=== PATIENT | male | born 1980 | race Two or more races ===

== ENCOUNTER 2016-11-08 08:32 | Emergency (ER) | payer BC ==
[~2016-11-08] VITALS: Ht 177.8 cm; Wt 111.1 kg
[2016-11-08 09:12] VITALS: BP 117/90
[2016-11-08] MEDS ORDERED: methylPREDNISolone SOD SUCC 125 MG/2 ML VL IM ONE (09:30)
[2016-11-08] MEDS ORDERED: IPRATROPIUM BROM 0.5 MG/2.5ML INH SOL NEB ONE (09:30)
[2016-11-08] MEDS ORDERED: ALBUTEROL SULF 2.5 MG/0.5ML(0.5%) NEB SOLN NEB ONE (09:30)
== END 2016-11-08 10:17 | disposition home or self-care (01) ==
LOC: ER 08:32
DX: S46.912A Strain of unspecified muscle, fascia and tendon at shoulder and upper arm level, left arm, initial encounter (principal); J45.909 Unspecified asthma, uncomplicated; X58.XXXA Exposure to other specified factors, initial encounter; Y93.89 Activity, other specified; Y92.89 Other specified places as the place of occurrence of the external cause; Y99.8 Other external cause status
CPT/HCPCS: 71020; 73030; 94640; 96372; 99284; J2930

== ENCOUNTER 2023-10-28 11:48 | Emergency (ER) | payer BC ==
[~2023-10-28] VITALS: Ht 177.8 cm; Wt 109.0 kg
[2023-10-28 12:37] VITALS: RESP 18; TEMP 98.3; O2SAT 92
[2023-10-28 14:06] LABS: Basophils # (auto) 0.1 10 ^3/uL (0-0.2); Basophils % (auto) 0.7 % (0.0-2.0); Eosinophils # (auto) 0.1 10 ^3/uL (0-0.8); Eosinophils % (auto) 0.9 % (0.0-7.0); Hematocrit 48.6 % (41.0-53.0); Hemoglobin 17.1 g/dL (13.5-17.5); Lymphocytes # (auto) 2.5 10 ^3/uL (0.4-5.4); Lymphocytes % (auto) 23.6 % (10.0-50.0); Mean Corpuscular Hemoglobin 32.5 pg (28.0-32.0); Mean Corpuscular Hgb Conc. 35.2 g/dL (32.0-36.0); Mean Corpuscular Volume 92.3 fL (80.0-100.0); Monocytes % (auto) 9.6 % (0.0-12.0); Neutrophils # (auto) 6.9 10 ^3/uL (1.6-8.6); Neutrophils % (auto) 65.2 % (37.0-80.0); Nucleated Red Blood Cells % 0.2 %; Platelet Count (auto) 237 10^3/uL (140-450); Red Blood Cells 5.27 10^6/uL (4.5-5.90); Red Cell Distribution Width 13.3 % (11.8-14.3); White Blood Cell 10.6 10^3/uL (4.4-10.8)
[2023-10-28 14:10] LABS: Anion Gap 9 (5-15); Carbon Dioxide 22 mmol/L (20-30); Chloride 110 mmol/L (98-107); Potassium 3.9 mmol/L (3.5-5.1); Sodium 141 mmol/L (136-145)
[2023-10-28 14:11] LABS: Calcium 10.1 mg/dL (8.7-10.4)
[2023-10-28 14:16] LABS: BUN/Creatinine Ratio 26.6 (10.0-20.0); Blood Urea Nitrogen 29 mg/dL (9-23); Glucose 93 mg/dL (74-106)
[2023-10-28 14:23] LABS: INR 0.97 (0.9-1.15); Partial Thromboplastin Time 27.3 SEC (24.5-34.5); Prothrombin Time 10.3 sec (9.3-11.8)
[2023-10-28] MEDS: IPRATROPIUM BROM 0.5 MG/2.5ML INH SOL NEB ONE (14:32)
[2023-10-28] MEDS: ALBUTEROL SULF 2.5 MG/0.5ML(0.5%) NEB SOLN NEB ONE (14:32)
[2023-10-28 15:37] VITALS: BP 134/91; PULSE 87; RESP 18; O2SAT 93
[2023-10-28] MEDS ORDERED: METH4PAK PO (15:41)
== END 2023-10-28 15:43 | disposition home or self-care (01) ==
LOC: ER 11:48
DX: J45.20 Mild intermittent asthma, uncomplicated (principal); Z79.899 Other long term (current) drug therapy
CPT/HCPCS: 36415; 71046; 80048; 83735; 84484; 85025; 85379; 85610; 85730; 94640

== ENCOUNTER 2023-11-04 13:24 | Emergency (ER) | payer BC ==
[~2023-11-04] VITALS: Ht 167.6 cm; Wt 112.3 kg
[~2023-11-04 13:24] MED LIST: METH4PAK PO
[2023-11-04] MEDS ORDERED: ALBUTEROL SULF 2.5 MG/0.5ML(0.5%) NEB SOLN NEB ONE (14:15)
[2023-11-04] MEDS ORDERED: methylPREDNISolone SOD SUCC 125 MG/2 ML VL IM ONE (14:15)
[2023-11-04] MEDS ORDERED: IPRATROPIUM BROM 0.5 MG/2.5ML INH SOL NEB ONE (14:15)
[2023-11-04] MEDS: ALBUTEROL SULF 2.5 MG/0.5ML(0.5%) NEB SOLN ONE (14:36)
[2023-11-04] MEDS: IPRATROPIUM BROM 0.5 MG/2.5ML INH SOL ONE (14:36)
[2023-11-04] MEDS ORDERED: ALBUAER3 IN (15:14)
[2023-11-04] MEDS ORDERED: AZIT500T PO (15:14)
[2023-11-04] MEDS ORDERED: METH4PAK PO (15:14)
[2023-11-04 15:27] LABS: Basophils # (auto) 0.1 10 ^3/uL (0-0.2); Basophils % (auto) 0.9 % (0.0-2.0); Eosinophils # (auto) 0.2 10 ^3/uL (0-0.8); Eosinophils % (auto) 1.4 % (0.0-7.0); Hematocrit 48.4 % (41.0-53.0); Hemoglobin 17.1 g/dL (13.5-17.5); Lymphocytes # (auto) 4.1 10 ^3/uL (0.4-5.4); Lymphocytes % (auto) 35.5 % (10.0-50.0); Mean Corpuscular Hgb Conc. 35.3 g/dL (32.0-36.0); Mean Corpuscular Volume 90.7 fL (80.0-100.0); Monocytes % (auto) 8.8 % (0.0-12.0); Neutrophils # (auto) 6.1 10 ^3/uL (1.6-8.6); Neutrophils % (auto) 53.4 % (37.0-80.0); Nucleated Red Blood Cells % 0.1 %; Platelet Count (auto) 246 10^3/uL (140-450); Red Blood Cells 5.34 10^6/uL (4.5-5.90); Red Cell Distribution Width 13.3 % (11.8-14.3); White Blood Cell 11.5 10^3/uL (4.4-10.8)
[2023-11-04] MEDS ORDERED: IPRA0.00 IN (15:31)
[2023-11-04 15:47] LABS: Chloride 107 mmol/L (98-107); Potassium 3.9 mmol/L (3.5-5.1); Sodium 141 mmol/L (136-145)
[2023-11-04 15:48] LABS: Anion Gap 10 (5-15); Carbon Dioxide 24 mmol/L (20-30)
[2023-11-04 15:49] LABS: Calcium 10.4 mg/dL (8.7-10.4)
[2023-11-04 15:53] LABS: BUN/Creatinine Ratio 22.3 (10.0-20.0); Blood Urea Nitrogen 27 mg/dL (9-23); Glucose 89 mg/dL (74-106)
[2023-11-04] MEDS: IPRATROPIUM BROM 0.5 MG/2.5ML INH SOL NEB ONE (16:00)
[2023-11-04] MEDS: ALBUTEROL SULF 2.5 MG/0.5ML(0.5%) NEB SOLN NEB ONE (16:00)
[2023-11-04 16:11] VITALS: BP 145/98; TEMP 98.3
[2023-11-04 16:12] VITALS: PULSE 69; RESP 20; O2SAT 96
[2023-11-04] MEDS: methylPREDNISolone SOD SUCC 125 MG/2 ML VL IV ONE (16:22)
[2023-11-04] MEDS: MAGNESIUM SULFATE 1GM/100ML 100 ML IV ONE (16:22)
== END 2023-11-04 16:55 | disposition home or self-care (01) ==
LOC: ER 13:24
DX: J45.901 Unspecified asthma with (acute) exacerbation (principal)
CPT/HCPCS: 36415; 71045; 80048; 84484; 85025; 94640; 96365; 96375; 99284; J2919; J3475

== ENCOUNTER 2023-11-08 12:58 | Observation (INO) | payer BC ==
[~2023-11-08] VITALS: Ht 177.8 cm; Wt 180.0 kg
[~2023-11-08 12:58] MED LIST changes: +ALBUAER3 IN; +AZIT500T PO; +IPRA0.00 IN
[2023-11-08] MEDS: MAGNESIUM SULFATE 1GM/100ML 100 ML IV ONE (13:15)
[2023-11-08] MEDS: methylPREDNISolone SOD SUCC 125 MG/2 ML VL IV ONE (13:15)
[2023-11-08] MEDS ORDERED: PANT40TA2 PO (13:18)
[2023-11-08] MEDS ORDERED: PRED20TA2 PO ×2 (13:18→17:08)
[2023-11-08 14:04] LABS: Basophils # (auto) 0 10 ^3/uL (0-0.2); Basophils % (auto) 0.3 % (0.0-2.0); Eosinophils # (auto) 0 10 ^3/uL (0-0.8); Eosinophils % (auto) 0.3 % (0.0-7.0); Hematocrit 46.2 % (41.0-53.0); Hemoglobin 16.3 g/dL (13.5-17.5); Lymphocytes % (auto) 11.8 % (10.0-50.0); Mean Corpuscular Hgb Conc. 35.3 g/dL (32.0-36.0); Mean Corpuscular Volume 90.8 fL (80.0-100.0); Monocytes # (auto) 0.6 10 ^3/uL (0-1.3); Monocytes % (auto) 6.7 % (0.0-12.0); Neutrophils # (auto) 7.2 10 ^3/uL (1.6-8.6); Neutrophils % (auto) 80.9 % (37.0-80.0); Nucleated Red Blood Cells % 0.1 %; Platelet Count (auto) 226 10^3/uL (140-450); Red Blood Cells 5.09 10^6/uL (4.5-5.90); Red Cell Distribution Width 13.1 % (11.8-14.3); White Blood Cell 8.8 10^3/uL (4.4-10.8)
[2023-11-08 14:05] LABS: Chloride 107 mmol/L (98-107); Potassium 3.8 mmol/L (3.5-5.1); Sodium 137 mmol/L (136-145)
[2023-11-08 14:07] LABS: Anion Gap 6 (5-15); Carbon Dioxide 24 mmol/L (20-30)
[2023-11-08 14:12] LABS: BUN/Creatinine Ratio 18.4 (10.0-20.0); Blood Urea Nitrogen 21 mg/dL (9-23); Glucose 97 mg/dL (74-106)
[2023-11-08] MEDS: ALBUTEROL SULF 2.5 MG/0.5ML(0.5%) NEB SOLN NEB ONE ×2 (14:43→17:35)
[2023-11-08] MEDS: IPRATROPIUM BROM 0.5 MG/2.5ML INH SOL NEB ONE ×2 (14:43→17:36)
[2023-11-08] MEDS ORDERED: MONT-8 OR (17:10)
[2023-11-08] MEDS ORDERED: FLUT100I IN (17:11)
[2023-11-08] MEDS ORDERED: IPRA0.00 IN (17:12)
[2023-11-08] MEDS: MONTELUKAST SODIUM 10 MG TAB PO ONE (17:15)
[2023-11-08 18:17] VITALS: PULSE 80; RESP 20; O2SAT 98
[2023-11-08] MEDS ORDERED: NITROGLYCERIN 0.4 MG SL TAB SL PRN (18:45)
[2023-11-08] MEDS ORDERED: MORPHINE SULFATE INJ 2 MG/ml SYRG IV PRN ×2 (18:45)
[2023-11-08] MEDS ORDERED: HYDROcodone-ACET 5/325MG TAB PO PRN (18:45)
[2023-11-08] MEDS ORDERED: ACETAMINOPHEN 325 MG TAB PO PRN (18:45)
[2023-11-08] MEDS: AZITHROMYCIN 500MG/ 250ML 250 ML IV SCH (20:19)
[2023-11-08 20:29] LABS: Rapid Influenza A Negative (Negative); Rapid Influenza B Negative (Negative)
[2023-11-08 20:30] LABS: COVID19 ANTIGEN SOFIA FIA NEGATIVE (NEGATIVE)
[2023-11-08 21:45] VITALS: PULSE 68; RESP 18; O2SAT 97
[2023-11-08] MEDS: ALBUTEROL SULF 2.5 MG/0.5ML(0.5%) NEB SOLN NEB SCH (21:55)
[2023-11-08] MEDS: IPRATROPIUM BROM 0.5 MG/2.5ML INH SOL NEB SCH (21:55)
[2023-11-08 21:56] VITALS: PULSE 68; RESP 18; O2SAT 97; O2SAT 99
[2023-11-08 21:57] VITALS: O2SAT 97
[2023-11-08 22:30] VITALS: BP 146/92; PULSE 78; RESP 20; TEMP 98; O2SAT 97
[2023-11-08 23:37] VITALS: BP 140/83; PULSE 78; RESP 18; TEMP 98.1; O2SAT 94
[2023-11-09] VITALS (11 sets, daily range): BP systolic 128–152; BP diastolic 84–102; PULSE 71–110; RESP 18–24; TEMP 97.7–98.5; O2SAT 91–99
[2023-11-09] MEDS ORDERED: hydrALAZINE HCL 20 MG/ML VL IV PRN (05:00)
[2023-11-09 07:04] LABS: Basophils # (auto) 0 10 ^3/uL (0-0.2); Basophils % (auto) 0.3 % (0.0-2.0); Eosinophils # (auto) 0 10 ^3/uL (0-0.8); Hematocrit 43.3 % (41.0-53.0); Hemoglobin 15.4 g/dL (13.5-17.5); Lymphocytes # (auto) 0.9 10 ^3/uL (0.4-5.4); Lymphocytes % (auto) 7.4 % (10.0-50.0); Mean Corpuscular Hemoglobin 32.2 pg (28.0-32.0); Mean Corpuscular Hgb Conc. 35.6 g/dL (32.0-36.0); Mean Corpuscular Volume 90.4 fL (80.0-100.0); Monocytes # (auto) 0.2 10 ^3/uL (0-1.3); Monocytes % (auto) 1.3 % (0.0-12.0); Neutrophils # (auto) 10.8 10 ^3/uL (1.6-8.6); Platelet Count (auto) 210 10^3/uL (140-450); Red Blood Cells 4.79 10^6/uL (4.5-5.90); Red Cell Distribution Width 13.1 % (11.8-14.3); White Blood Cell 11.9 10^3/uL (4.4-10.8)
[2023-11-09 07:25] LABS: Alanine Aminotransferase 31 U/L (7-40); Alkaline Phosphatase 45 U/L (46-116); Anion Gap 10 (5-15); BUN/Creatinine Ratio 23.1 (10.0-20.0); Blood Urea Nitrogen 21 mg/dL (9-23); Calcium 9.7 mg/dL (8.7-10.4); Carbon Dioxide 23 mmol/L (20-30); Chloride 105 mmol/L (98-107); Glucose 127 mg/dL (74-106); Potassium 3.9 mmol/L (3.5-5.1); Sodium 138 mmol/L (136-145)
[2023-11-09 07:26] LABS: Albumin 4.4 g/dL (3.2-4.8); Aspartate Aminotransferase < 8 U/L (13-40); Bilirubin, Total 0.8 mg/dL (0.2-1.0); Total Protein 6.6 g/dL (5.7-8.2)
[2023-11-09] MEDS: methylPREDNISolone SOD SUCC 125 MG/2 ML VL IV SCH (09:15)
[2023-11-09] MEDS: FAMOTIDINE 20 MG TAB PO SCH (10:00)
[2023-11-09] MEDS ORDERED: PANT40TA2 PO (10:58)
[2023-11-09] MEDS ORDERED: PRED10TA PO (11:00)
[2023-11-09] MEDS ORDERED: LEVO500T91 PO (11:05)
== END 2023-11-09 14:00 | disposition home or self-care (01) ==
LOC: ER 12:58 → INTOOBSV 18:45 → TELE 18:45 → TELE-E-ADS 18:45
PROVIDERS: ADMIT Student in an Organized Health Care Education/Training Program; ATTEND Student in an Organized Health Care Education/Training Program
DX: J45.51 Severe persistent asthma with (acute) exacerbation (principal); R53.1 Weakness; D84.9 Immunodeficiency, unspecified; E66.9 Obesity, unspecified; Z68.34 Body mass index [BMI] 34.0-34.9, adult; Z87.09 Personal history of other diseases of the respiratory system; Z87.891 Personal history of nicotine dependence; Z20.822 Contact with and (suspected) exposure to COVID-19; Z79.899 Other long term (current) drug therapy; Z98.890 Other specified postprocedural states
CPT/HCPCS: 36415; 71045; 80048; 80053; 85025; 87070; 87205; 87426; 87804; 93005; 94640; 96365; 96366; 96367; 96375; 96376; 99284; G0378; J0456; J2919; J3475; 96374

== ENCOUNTER 2023-11-13 11:31 | Emergency (ER) | payer BC ==
[~2023-11-13] VITALS: Ht 177.8 cm; Wt 110.8 kg
[~2023-11-13 11:31] MED LIST changes: -AZIT500T PO; +FLUT100I IN; +LEVO500T91 PO; -METH4PAK PO; +MONT-8 OR; +PANT40TA2 PO; +PRED10TA PO; +PRED20TA2 PO
[2023-11-13] MEDS: ALBUTEROL SULF 2.5 MG/0.5ML(0.5%) NEB SOLN NEB ONE ×3 (12:23→15:19)
[2023-11-13] MEDS: methylPREDNISolone SOD SUCC 125 MG/2 ML VL IV ONE (12:23)
[2023-11-13] MEDS: IPRATROPIUM BROM 0.5 MG/2.5ML INH SOL NEB ONE (12:24)
[2023-11-13] MEDS: MAGNESIUM SULFATE 1GM/100ML 100 ML IV ONE ×2 (12:40)
[2023-11-13 16:01] VITALS: BP 140/82; TEMP 98.7
[2023-11-13 16:25] VITALS: PULSE 92; RESP 18; O2SAT 97
== END 2023-11-13 16:32 | disposition home or self-care (01) ==
LOC: ER 11:31
DX: J45.901 Unspecified asthma with (acute) exacerbation (principal)
CPT/HCPCS: 71045; 94640; 96365; 96375; 99285; J2919; J3475

== ENCOUNTER 2023-11-30 11:31 | Emergency (ER) | payer BC ==
[~2023-11-30] VITALS: Ht 177.8 cm; Wt 112.0 kg
[2023-11-30 12:53] VITALS: BP 145/91; PULSE 83; RESP 20; TEMP 98.9; O2SAT 96
[2023-11-30] MEDS ORDERED: DOXY-286 PO (13:33)
[2023-11-30] MEDS: methylPREDNISolone SOD SUCC 125 MG/2 ML VL IM ONE (13:43)
== END 2023-11-30 13:47 | disposition home or self-care (01) ==
LOC: ER 11:31
DX: L73.9 Follicular disorder, unspecified (principal); J45.909 Unspecified asthma, uncomplicated
CPT/HCPCS: 96372; 99283; J2919

== ENCOUNTER 2024-02-29 17:26 | Emergency (ER) | payer BC ==
[~2024-02-29] VITALS: Ht 177.8 cm; Wt 114.0 kg
[~2024-02-29 17:26] MED LIST changes: +DOXY-286 PO
--- NOTE | 2024-02-29 17:55 | ED.PDOC ---
SOB-HPI HPI Comments 43 y.o male with PMHx of COPD and asthma, presents to the ED for a chief c omplaint of SOB associated with a productive cough and congestion that started 2 days ago. Patient reports recently recovering from influenza 2 weeks ago, states this SOB episode presented spontaneously, has been using his nebulizer at home but has had no relief. Patient attempted to scheduled an appointment with PCP but closest date would be in May. Patient has no home oxygen. Upon ED arrival, patient's SPO2 read at 97% RA. He denies any chest pain, fever, chills, nausea, or vomiting. Patient was hypertensive at arrival. Patient states he has had events of elevated blood pressure, but has not discussed these with his primary care provider. Chief Complaint: Shortness of Breath Time Seen by MD: 17:48 Primary Care Provider: none Reviewed notes: Nurses Notes, Allergies Information Source: Patient Mode of Arrival: Ambulatory Severity: Moderate Timing: Days (2) Duration: Since onset Context: At Rest PE Risk Factors: None History of: Asthma, COPD Modifying Factors: Nothing Associated Signs and Symptoms: Cough, Nasal Congestion If cough with SOB: Productive Past Medical History PAST MEDICAL HISTORY: Asthma, COPD Past Medical History (Other): Possible hypertension Surgical History: Denies all surgeries Family History Family History: Reviewed,noncontributory to illness, Unknown Social History Smoker: Non-Smoker Alcohol: Denies ETOH Use Drugs: Denies Drug Use Lives In: Home Constitutional: denies: chills, diaphoresis, fatigue, fever, malaise, sweats, weakness, others EENTM: reports: nose congestion; denies: blurred vision, double vision, ear bleeding, ear discharge, ear drainage, ear pain, ear ringing, eye pain, eye redness, hearing loss, mouth pain, mouth swelling, nasal discharge, nose bleed ing, nose pain, photophobia, tearing, throat pain, throat swelling, voice changes, others Respiratory: reports: cough, SOB at rest, shortness of breath, SOB with excertion; denies: hemoptysis, orthopnea, stridor, wheezing, others Cardiovascular: denies: chest pain, dizzy spells, diaphoresis, Dyspnea on exertion, edema, irregular heart beat, left arm pain, lightheadedness, palpitati ons, PND, syncope, others Gastrointestinal: denies: abdomen distended, abdominal pain, blood streaked bowels, constipated, diarrhea, dysphagia, difficulty swallowing, hematemesis, melena, nausea, poor appetite, poor fluid intake, rectal bleeding, rectal pain, vomiting, others Genitourinary: denies: burning, dysuria, flank pain, frequency, hematuria, incontinence, penile discharge, penile sore, pain, testicle pain, testicle swelling, urgency, others Musculoskeletal: denies: back pain, gout, joint pain, joint swelling, muscle pain, muscle stiffness, neck pain, others Integumetry: denies: bruises, change in color, change in hair/nails, dryness, laceration, lesions, lumps, rash, wounds, others Allergic/Immunocompromised: denies: Difficulty Healing, Frequent Infections, Hives, Itching, others Hematologic/Lymphatic: denies: anemia, blood clots, easy bleeding, easy bruising, swollen glands, others Endocrine: denies: excessive hunger, excessive sweating, excessive thirst, excessive urination, flushing, intolerance to cold, intolerance to heat, unexplained weight gain, unexplained weight loss, others Psychiatric: denies: anxiety, bipolar disorder, depression, hopeless, panic disorder, schizophrenia, sleepless, suicidal, others All Other Systems: Reviewed and Negative Physical Exam General Appearance: Moderate Distress (Shows due to shortness of breath concerns. Patient does not display any signs of respiratory distress. No accessory muscle use.), Normal HEENT: Normal ENT Inspection, Pharynx Normal, TMs Normal Neck: Full Range of Motion, Non-Tender, Normal, Normal Inspection Respiratory: Other (Patchy wheezing appreciated in right middle lobe, right upper lobe and left upper lobe. No rhonchi. No accessory muscle use. No respi ratory distress.) Cardiovascular: No Edema, No JVD, No Murmur, No Gallop, Normal Peripheral Pulses, Regular Rate/Rhythm Breast Exam: Deferred Gastrointestinal: No Organomegaly, Non Tender, No Pulsatile Mass, Normal Bowel Sounds, Soft Genitalia: Deferred Pelvic: Deferred Rectal: Deferred Extremities: No calf tenderness, Normal capillary refill, Normal inspection, Normal range of motion, Non-tender, No pedal edema Neurologic: Alert, No Motor Deficits, Normal Affect, Normal Mood, No Sensory Deficits Cerebellar Function: Normal Reflexes: Normal Skin: Dry, Normal Color, Warm Lymphatic: No Adenopathy Was a procedure done? Was a procedure done?: No Differential Dx Differential Diagnosis: Asthma, Bronchitis, COPD, Pneumonia, URI X-Ray, Labs, Meds, VS Vital Signs Date Time Temp Pulse Resp B/P (MAP) Pulse Ox O2 Delivery O2 Flow Rate FiO2 02/29/24 18:33 90 18 Room Air 02/29/24 18:33 90 18 147/97 (114) 96 02/29/24 18:05 18 98 Room Air* 0 21 02/29/24 17:36 20 97 Room Air* 0 21 02/29/24 17:36 97.8 88 20 139/113 (122) 97 Current Medications Medications (Trade) Dose Ordered Sig/Winston Route Start Time Stop Time Status Last Admin Albuterol (Ventolin Medneb) 5 mg ONCE ONCE NEB 02/29/24 18:00 02/29/24 18:01 DC 02/29/24 18:04 Ipratropium [place] (Atrovent Medneb) 0.5 mg ONCE ONCE NEB 02/29/24 18:00 02/29/24 18:01 DC 02/29/24 18:03 Dexamethasone Sodium Phosphate (Decadron Injection) 10 mg ONCE ONCE IM 02/29/24 18:00 02/29/24 18:01 DC 02/29/24 18:00 X-Ray, Labs, Meds, VS Comment All studies performed in the ED were evaluated by me personally. Imaging s tudies were unremarkable for any pneumonia or bronchitis. Patient appears to be having a COPD exacerbation. Patient had good relief of symptoms status post medication dispensed. Advised patient utilize medication as directed and follow up with his primary care provider for discussions related to medication management of his concerns as I do not feel he is being properly medicated. Time of 1ST Reevaluation: 18:53 Reevaluation 1ST: Improved Consultation: PCP Patient Education/Counseling: Diagnosis, Treatment, Prognosis Family Education/Counseling: Diagnosis, Treatment, No Family Present Departure 1 Departure Time of Disposition: 18:53 Impression: Primary Impression: Asthma exacerbation Disposition: 01 HOME / SELF CARE / HOMELESS Condition: Stable Additional Instructions: Advised patient utilize medication as needed for symptomatic relief as well as additional medication as directed. Patient needs to follow up with the primary care provider for discussions related to medication management as I feel he can improve his quality of life with proper medication. e-Prescriptions Budesonide-Formoterol Fumarate (Budesonide/Formoterol Fum 160-4.5 Mcg/Act) 1 Aer Aer 2 AER IN BID, #1 AER 1 Refill Prov: ARLEN TYLER PAC 02/29/24 Albuterol Sulfate (Albuterol Sulfate Hfa) 108 Mcg/Act Aer 108 MCG IN Q4HP PRN, #10 AER Prov: ARLEN TYLER PAC 02/29/24 Discharged With: Self, Friend Critical Care Note Critical Care Time?: No Stability Stability form required: No I personally scribed for ARLEN TYLER PAC ([email or web address]) on 02/29/24 at 17:55. Electronically submitted by Cristina Briggs ([facility]). ARLEN TYLER PAC Feb 29, 2024 17:55
[2024-02-29] MEDS: DexAMETHasone SOD PHOS 10MG/1ML VIAL INJ IM ONE (18:00)
[2024-02-29] MEDS: IPRATROPIUM BROM 0.5 MG/2.5ML INH SOL NEB ONE (18:03)
[2024-02-29] MEDS: ALBUTEROL SULF 2.5 MG/0.5ML(0.5%) NEB SOLN NEB ONE (18:04)
--- NOTE | 2024-02-29 18:29 | DVH ---
CHEST RADIOGRAPH Indication: Shortness of breath Technique: Single frontal view of the chest was obtained Comparison: XY CHEST PORTABLE on DOS: 11/13/23, XY CHEST PORTABLE on DOS: 11/08/23, XY CHEST XRAY 1 VIE W on DOS: 11/04/23 FINDINGS: Lines and Tubes: None Lungs: No focal consolidation. Pleura: No effusion. No pneumothorax. Cardiomediastinal contours: Unremarkable Bones: No acute osseous abnormality. IMPRESSION: No acute cardiopulmonary disease.
[2024-02-29 18:33] VITALS: BP 147/97; PULSE 90; RESP 18; O2SAT 96
[2024-02-29] MEDS ORDERED: ALBU108A5 IN (18:55)
[2024-02-29] MEDS ORDERED: BUDE1AER4 IN (18:55)
== END 2024-02-29 19:11 | disposition home or self-care (01) ==
LOC: ER 17:26
DX: J45.901 Unspecified asthma with (acute) exacerbation (principal); I10 Essential (primary) hypertension
CPT/HCPCS: 71045; 94640; 96372; 99283; J1100

== ENCOUNTER 2024-04-24 06:58 | Emergency (ER) | payer BC, OTHER ==
[~2024-04-24] VITALS: Ht 177.8 cm; Wt 115.4 kg
[~2024-04-24 06:58] MED LIST changes: +ALBU108A5 IN; +BUDE1AER4 IN
--- NOTE | 2024-04-24 07:39 | DVH ---
EXAM: XR Chest, 1 View CLINICAL INDICATION: sob TECHNIQUE: Frontal view of the chest. COMPARISON: XY CHEST PORTABLE on DOS: 02/29/24, XY CHEST PORTABLE on DOS: 11/13/23, XY CHEST PORTABLE on DOS: 11/08/23, XY CHEST XRAY 1 VIEW on DOS: 11/04/23 FINDINGS: LUNGS AND PLEURAL SPACES: Unremarkable. No consolidation. No pneumothorax. HEART: Unremarkable. No cardiomegaly. MEDIASTINUM: Unremarkable. Normal mediastinal contour. BONES/JOINTS: Unremarkable. No acute fracture. OTHER FINDINGS: . None. IMPRESSION: No acute cardiopulmonary process.
[2024-04-24 07:45] LABS: Basophils # (auto) 0.1 10 ^3/uL (0-0.2); Basophils % (auto) 0.8 % (0.0-2.0); Eosinophils # (auto) 0 10 ^3/uL (0-0.8); Hematocrit 47.3 % (41.0-53.0); Lymphocytes # (auto) 1.9 10 ^3/uL (0.4-5.4); Lymphocytes % (auto) 24.9 % (10.0-50.0); Mean Corpuscular Hemoglobin 30.8 pg (28.0-32.0); Mean Corpuscular Volume 85.5 fL (80.0-100.0); Monocytes # (auto) 0.8 10 ^3/uL (0-1.3); Neutrophils # (auto) 4.8 10 ^3/uL (1.6-8.6); Neutrophils % (auto) 63.3 % (37.0-80.0); Nucleated Red Blood Cells % 0.1 %; Platelet Count (auto) 213 10^3/uL (140-450); Red Blood Cells 5.53 10^6/uL (4.5-5.90); Red Cell Distribution Width 13.2 % (11.8-14.3); White Blood Cell 7.6 10^3/uL (4.4-10.8)
[2024-04-24 07:59] LABS: Alkaline Phosphatase 64 U/L (46-116); Anion Gap 8 (5-15); Aspartate Aminotransferase 38 U/L (13-40); BUN/Creatinine Ratio 19.4 (10.0-20.0); Bilirubin, Total 0.8 mg/dL (0.2-1.0); Blood Urea Nitrogen 20 mg/dL (9-23); Carbon Dioxide 24 mmol/L (20-31); Glucose 91 mg/dL (74-106); Potassium 3.5 mmol/L (3.5-5.1); Sodium 140 mmol/L (136-145); Total Protein 7.8 g/dL (5.7-8.2)
[2024-04-24 08:02] LABS: Alanine Aminotransferase 74 U/L (7-40); Albumin 5.1 g/dL (3.2-4.8); Chloride 108 mmol/L (98-107)
--- NOTE | 2024-04-24 08:06 | ED.PDOC ---
SOB-HPI HPI Comments HPI: Poor Historian. HPI: 43-year-old male presents with a chief complaint of SOB with associated wheezing x onset yesterday. Patient states that he has been having an increase in the number of asthma attacks at home and has been using his home medications to relieve his symptoms. Patient mentions that he was feeling worse and decided to come to the ER before it became dangerous. Patient mentions that he has not been improving even with his nebulizer treatments. Patient also has some nasal congestion and dry cough. Patient relays that he was recently sick with both COVID-19 and Influenza. Past Medical History: ASTHMA, COPD, DEPRESSION, ANXIETY Past Surgical History: DENIES Social History: DENIES Medications: ADVAIR, SPIRIVA Allergies: NKDA REVIEW OF SYSTEMS: CONSTITUTIONAL: Denies acute: fever, diaphoresis, chills, generalized weakness. HEAD: Denies acute: headache, photophobia Eyes: Denies acute: Double vision, vision loss, eye pain, eye discharge. EARS: Denies acute: tinnitus, hearing loss, ear discharge, ear pain, THROAT: Denies acute: sore throat, swelling, difficulty swallowing , pain with swallowing, change in voice. NECK: Denies acute: neck pain, neck swelling, stiff neck. HEART: Denies acute : chest pain, palpitations, LUNGS: Denies acute: wheezing, cough, hemoptysis ABDOMEN: Denies acute: abdominal pain, Nausea, Vomiting, diarrhea, melena , hematemesis, hematochezia SKIN: Denies acute: rash, redness, lesions, itchiness. EXTREMITIES: Denies acute: calf pain, numbness, tingling, weakness, denies pain in extremity. Denies acute: Low back pain. Neuro: Denies acute: focal neurological deficit, motor or sensory focal neurological deficit, tremors, seizure like activity, confusion, dizziness, change in mental status, loss of bowel or bladder function, cauda equina like symptoms. : Denies acute: dysuria, hematuria, flank pain, increase in urinary frequency. PSYCH: Denies acute: hallucination, suicidal ideation, homicidal ideation. PHYSICAL EXAM: General: no acute distress, awake and alert. Head: normocephalic, atraumatic. Neck: supple, trachea is midline, no swelling. Throat: Normal phonation. Eyes:, no erythema, no purulent discharge, no proptosis, no icterus. Heart: regular rate, regular rhythm, no significant murmur appreciated. Lungs: no apparent respiratory distress, Able to speak in full sentences. No wheezing, no rhonchi, no crackles. No stridors Clear to auscultation bilaterally. Abdomen: non tender to palpation, non distended, soft, no guarding, no rebound, + bowel sounds. Neuro: Awake, Alert, oriented to name, self, situation, follows commands GCS=15. Speech is normal. Skin: no petechia, no purpura, no cyanosis, non-pale, not jaundice. Lower extremities: --no - Pitting edema no deformity, no focal swelling, no calf TTP. Makes eye contact. moves all four extremities. Face: no apparent facial droop. ED COURSE: Chief Complaint: Shortness of Breath Time Seen by MD: 07:42 Primary Care Provider: NADIR Guerra notes: Nurses Notes, Medications, Allergies Information Source: Patient Mode of Arrival: Ambulatory Past Medical History PAST MEDICAL HISTORY: Anxiety, Asthma, COPD, Depression Surgical History: Denies all surgeries Family History Family History: Reviewed,noncontributory to illness, Unknown Social History Smoker: Non-Smoker Alcohol: Denies ETOH Use Drugs: Denies Drug Use Lives In: Home Was a procedure done? Was a procedure done?: No Differential Dx Differential Diagnosis: Other (DDx include ACS, unstable angina, anxiety, PE, pneumothroax, neoplasm, cardiac ischemia, COPD, asthma, CHF, pleural effusion, tobacco abuse, pneumonia, hypoxia, hypercapnia, anemia., infection/sepsis., pulmonary edema. Asthma, Cardiac tamponade, infection.) X-Ray, Labs, Meds, VS Vital Signs Date Time Temp Pulse Resp B/P (MAP) Pulse Ox O2 Delivery O2 Flow Rate FiO2 04/24/24 12:00 92 15 127/3 (44) 98 04/24/24 11:00 89 15 153/84 (107) 92 04/24/24 10:00 73 15 119/58 (78) 92 04/24/24 09:00 71 16 123/61 (81) 92 04/24/24 08:38 19 93 Room Air* 0 21 04/24/24 08:09 66 16 97 Room Air* 0 21 04/24/24 08:05 79 14 150/93 (112) 96 04/24/24 08:03 64 04/24/24 07:26 18 96 Room Air* 0 04/24/24 07:20 97.0 81 18 155/91 (112) 96 Lab Test 04/24/24 10:32 04/24/24 08:32 04/24/24 08:18 04/24/24 07:29 Range/Units Troponin I High Sensitivity < 3 L < 3 L < 3 L </=54 ng/L Influenza Type A Antigen Negative Negative Influenza Type B Antigen Negative Negative SARS-CoV-2 Antigen (Rapid) Negative NEGATIVE White Blood Count 7.6 4.4-10.8 10^3/uL Red Blood Count 5.53 4.5-5.90 10^6/uL Hemoglobin 17.0 13.5-17.5 g/dL Hematocrit 47.3 41.0-53.0 % Mean Corpuscular Volume 85.5 80.0-100.0 fL Mean Corpuscular Hemoglobin 30.8 28.0-32.0 pg Mean Corpuscular Hemoglobin Concent 36.0 32.0-36.0 g/dL Red Cell Distribution Width 13.2 11.8-14.3 % Platelet Count 213 140-450 10^3/uL Mean Platelet Volume 7.9 6.9-10.8 fL Neutrophils (%) (Auto) 63.3 37.0-80.0 % Lymphocytes (%) (Auto) 24.9 10.0-50.0 % Monocytes (%) (Auto) 11.0 0.0-12.0 % Eosinophils (%) (Auto) 0.0 0.0-7.0 % Basophils (%) (Auto) 0.8 0.0-2.0 % Neutrophils # (Auto) 4.8 1.6-8.6 10 ^3/uL Lymphocytes # (Auto) 1.9 0.4-5.4 10 ^3/uL Monocytes # (Auto) 0.8 0-1.3 10 ^3/uL Eosinophils # (Auto) 0 0-0.8 10 ^3/uL Basophils # (Auto) 0.1 0-0.2 10 ^3/uL Nucleated Red Blood Cells 0.1 % D-Dimer, Quantitative 0.26 0.0-0.49 mg/L FEU Sodium Level 140 136-145 mmol/L Potassium Level 3.5 3.5-5.1 mmol/L Chloride Level 108 H 98-107 mmol/L Carbon Dioxide Level 24 20-31 mmol/L Anion Gap 8 5-15 Blood Urea Nitrogen 20 9-23 mg/dL Creatinine 1.03 0.700-1.30 mg/dL Glomerular Filtration Rate Calc 92 >90 mL/min BUN/Creatinine Ratio 19.4 10.0-20.0 Serum Glucose 91 74-106 mg/dL Lactic Acid Level 1.0 0.4-2.0 mmol/L Calcium Level 10.0 8.7-10.4 mg/dL Total Bilirubin 0.8 0.2-1.0 mg/dL Aspartate Amino Transferase (AST) 38 13-40 U/L Alanine Aminotransferase (ALT) 74 H 7-40 U/L Alkaline Phosphatase 64 46-116 U/L B-Type Natriuretic Peptide 9.72 0-100 pg/mL Total Protein 7.8 5.7-8.2 g/dL Albumin 5.1 H 3.2-4.8 g/dL Current Medications Medications (Trade) Dose Ordered Sig/Winston Route Start Time Stop Time Status Last Admin Albuterol (Ventolin Medneb) 2.5 mg ONCE ONCE NEB 04/24/24 08:30 04/24/24 08:31 DC 04/24/24 08:38 Ipratropium [place] (Atrovent Medneb) 1 mg ONCE ONCE NEB 04/24/24 08:30 04/24/24 08:31 DC 04/24/24 08:39 Methylprednisolone Sodium Succinate (Solu Medrol) 125 mg ONCE ONCE IV 04/24/24 08:30 04/24/24 08:31 DC 04/24/24 08:47 [place] [id number] Ph: [phone] DIAGNOSTIC IMAGING Diagnostic Imaging Report : [id number] Signed PATIENT: MICHELL CUETO ACCT: [id number] UNIT: [id number] : 1980 LOC: ER ROOM / BED: / AGE / SEX: 43 / M ADM STATUS: REG ER SERVICE 7 ORDERING PHYSICIAN: CARMENCITA LANE DO PROCEDURE(s): CXRP - CHEST PORTABLE REASON: sob ORDER NUMBER(s): [id number], ACCESSION NUMBER(s): [id number] EXAM: XR Chest, 1 View CLINICAL INDICATION: sob TECHNIQUE: Frontal view of the chest. COMPARISON: XY CHEST PORTABLE on DOS: 02/29/24, XY CHEST PORTABLE on DOS: 11/13/23, XY CHEST PORTABLE on DOS: 11/08/23, XY CHEST XRAY 1 VIEW on DOS: 11/04/23 FINDINGS: LUNGS AND PLEURAL SPACES: Unremarkable. No consolidation. No pneumothorax. HEART: Unremarkable. No cardiomegaly. MEDIASTINUM: Unremarkable. Normal mediastinal contour. BONES/JOINTS: Unremarkable. No acute fracture. OTHER FINDINGS: . None. IMPRESSION: No acute cardiopulmonary process. ATED BY: ARLEN QUEEN MD DICTATED DATE/TIME: 04/24/24735 SIGNED BY: ARLEN QUEEN MD SIGNED DATE/TIME: 04/24/24735 Images Reviewed?: Images reviewed and evaluated by Time of 1ST Reevaluation: 08:12 Reevaluation 1ST: Unchanged Time of 2ND Reevaluation: 00:00 Reevaluation 2ND: Resolved Patient Education/Counseling: Diagnosis, Treatment Family Education/Counseling: Other Comments Patient presented with the above HPI.---dyspnea---workup was initiated. patient was found with the above mentioned diagnosis. the following medications were ordered: please refer to order lists of meds and tests obtained by myself Dr. Lane. Patient ED course and VS have been stabilized. Patient has been reassessed in the ED and remained in a stable condition. Pertinent incidental findings were discussed with the patient and/or family. Patient/family voices understanding and is agreeable with plan. Patient has been observed in the ED adequate length of time to insure improvement/stability. Escalation of care considered: Consideration of escalation to observation or admission Patient was DISCHARGED home in a stable condition. All the reports of any imaging studies that were ordered by myself were reviewed by myself. Departure 1 Departure Time of Disposition: 11:51 Impression: Primary Impression: Asthma exacerbation Disposition: HOME / SELF CARE / HOMELESS Condition: Stable Additional Instructions: Additional discharge instructions: You MUST follow-up with your primary care/family doctor in 1 to 2 days. If you are unable to see your primary care/family doctor, please return to our emergency room for re-assessment and re-evaluation in 1 to 2 days. Return to the emergency room here in our facility or to the nearest ER [facility] if your symptoms change or worsen. CONSULTATIONS: you MUST Follow-up for consultation as soon as possible with: -pulmonology in 1-2 days. Please call for appointment You MUST call the consultants office yourself to make an appointment. You may need to arrange that through your insurance and/or your primary/family doctor. If you are unable to see the product support consultant in 1 to 2 days, you must return to our emergency room (or any other ER of your choice) for re-assessment and re-e valuation. Adequate fluid hydration. Continue using your inhaler at home as prescribed. e-Prescriptions Prednisone (Prednisone) 20 Mg Tab 20 MG PO DAILY for 5 Days, #5 CAP Prov: CARMENCITA LANE DO 04/24/24 Discharged With: Self Critical Care Note Critical Care Time?: No Heart Score Heart Score: Heart Score Response (Comments) Value History N/A 0 EKG N/A 0 Age N/A 0 Risk Factors N/A 0 Troponin N/A 0 Total 0 I personally scribed for CARMENCITA LANE DO ([email or web address]) on 04/24/24 at 08:06. Electro nically submitted by Tom Nathan ([email or web address]). I personally scribed for CARMENCITA LANE DO ([email or web address]) on 04/24/24 at 08:14. Electronically submitted by Tom Nathan ([email or web address]). CARMENCITA LANE DO Apr 24, 2024 08:06
[2024-04-24 08:09] VITALS: PULSE 66; RESP 16; O2SAT 97
[2024-04-24] MEDS: ALBUTEROL SULF 2.5 MG/0.5ML(0.5%) NEB SOLN NEB ONE (08:38)
[2024-04-24] MEDS: IPRATROPIUM BROM 0.5 MG/2.5ML INH SOL NEB ONE (08:39)
[2024-04-24] MEDS: methylPREDNISolone SOD SUCC 125 MG/2 ML VL IV ONE (08:47)
[2024-04-24 08:57] LABS: COVID19 ANTIGEN SOFIA FIA NEGATIVE (NEGATIVE); Rapid Influenza A Negative (Negative); Rapid Influenza B Negative (Negative)
[2024-04-24] MEDS ORDERED: PRED20TA2 PO (11:51)
[2024-04-24 12:00] VITALS: BP 127/3; PULSE 92; RESP 15; O2SAT 98
--- NOTE | 2024-04-24 18:22 | ECG ---
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
== END 2024-04-24 12:21 | disposition home or self-care (01) ==
LOC: ER 06:58
DX: J45.901 Unspecified asthma with (acute) exacerbation (principal); Z79.51 Long term (current) use of inhaled steroids; Z20.822 Contact with and (suspected) exposure to COVID-19
CPT/HCPCS: 36415; 71045; 80053; 83605; 83880; 84484; 85025; 85379; 87426; 87804; 93005; 94640; 96374; 99285; J2919

== ENCOUNTER 2024-06-29 10:40 | Emergency (ER) | payer BC, OTHER ==
[~2024-06-29] VITALS: Ht 177.8 cm; Wt 120.3 kg
--- NOTE | 2024-06-29 10:56 | ECG ---
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
--- NOTE | 2024-06-29 11:13 | ED.PDOC ---
History of Present Illness HPI Comments 43-year-old male with PMHx COPD, Asthma presents with a chief complaint of SOB with exertion and at rest. Patient mentions that he took his albuterol inhaler last night and this morning, but has not had any more relief. Patient mentions that he feels winded when walking short distances. Patient is audibly wheezing upon assessment. Patient denies any other respiratory illnesses besides COPD and Asthma. Chief Complaint: Shortness of Breath Time Seen by MD: 11:04 Primary Care Provider: SAEID Reviewed Notes: Medications, Allergies Allergies: Coded Allergies: NO KNOWN ALLERGIES (Unverified , 11/08/16) Home Meds Active Scripts Prednisone (Prednisone) 10 Mg Tab, 10 MG PO DAILY for 3 Days, #3 MG Prov:MARK AGUIRRE MD 06/29/24 Amoxicillin Trihydrate (Amoxicillin) 500 Mg Cap, 1 CAP PO TID for 7 Days, #21 CAP Prov:MARK AGUIRRE MD 06/29/24 Prednisone (Prednisone) 20 Mg Tab, 20 MG PO DAILY for 5 Days, #5 CAP Prov:CARMENCITA LANE DO 04/24/24 Budesonide-Formoterol Fumarate (Budesonide/Formoterol Fum 160-4.5 Mcg/Act) 1 Aer Aer, 2 AER IN BID, #1 AER 1 Refill Prov:ARLEN TYLER PAC 02/29/24 Albuterol Sulfate (Albuterol Sulfate Hfa) 108 Mcg/Act Aer, 108 MCG IN Q4HP PRN, #10 AER Prov:ARLEN TYLER PAC 02/29/24 Doxycycline Hyclate (DOXYCYCLINE HYCLATE) 100 Mg Tab, 1 TAB PO BID for 10 Days, #20 TAB 0 Refills Prov:ROCK GILES NP 11/30/23 Levofloxacin Hemihydrate (LEVOFLOXACIN) 500 Mg Tab, 500 MG PO DAILY for 5 Days, #5 TAB 0 Refills Prov:CAMI BAPTISTE DO 11/09/23 Prednisone (Prednisone) 10 Mg Tab, 10 MG PO DAILY for 30 Days, #60 MG 0 Refills Start taking once completed higher dosage prednisone 40mg prescription. Take 1 daily and have solutions specialist reduce dose regimen. Prov:CAMI BAPTISTE DO 11/09/23 Pantoprazole Sodium Sesquihydr (Protonix) 40 Mg Tab, 40 MG PO DAILY for 30 Days, #30 TAB 2 Refills Prov:CAMI BAPTISTE DO 11/09/23 Ipratropium-Albuterol (Ipratropium [place]/Albut) 1 Jean Claude Jean Claude, 1 JEAN CLAUDE IN Q4HP PRN for 30 Days, #120 ML 1 Refill Prov:CAMI BAPTISTE DO 11/08/23 Fluticasone Furoate-Vilanterol (BREO ELLIPTA) 1 Inh Inh, 1 INH IN BID for 30 Days, #1 INHALER 2 Refills Prov:CAMI BAPTISTE DO 11/08/23 Montelukast Sodium (MONTELUKAST SODIUM) 10 Mg Tab, 10 MG OR HS for 30 Days, #30 TAB 1 Refill Prov:CAMI BAPTISTE DO 11/08/23 Prednisone (Prednisone) 20 Mg Tab, 40 MG PO DAILY for 9 Days, #14 TAB 0 Refills Take 2 tablets for 5 days daily, then 1 tablet daily for 3 days, then 1/2 tablet daily for 2 days then stop. Prov:CAMI BAPTISTE DO 11/08/23 Albuterol Sulfate (VENTOLIN MDI) 90 Mcg Ih, 90 MCG IN Q4HP PRN, #1 INH Prov:LUPE WASSERMAN MD 11/04/23 Information Source: Patient Mode of Arrival: Ambulatory Severity: Moderate Timing: Hours Duration: Since onset Prehospital treatment: None Past Medical History PAST MEDICAL HISTORY: Anxiety, Asthma, COPD, Depression Surgical History: Denies all surgeries Family History Family History: Reviewed,noncontributory to illness, Unknown Social History Smoker: Non-Smoker Alcohol: Denies ETOH Use Drugs: Denies Drug Use Lives In: Home Constitutional: denies: chills, diaphoresis, fatigue, fever, malaise, sweats, weakness, others EENTM: denies: blurred vision, double vision, ear bleeding, ear discharge, ear drainage, ear pain, ear ringing, eye pain, eye redness, hearing loss, mouth pain, mouth swelling, nasal discharge, nose bleeding, nose congestion, nose pain, photophobia, tearing, throat pain, throat swelling, voice changes, others Respiratory: reports: SOB at rest, shortness of breath, SOB with excertion; denies: cough, hemoptysis, orthopnea, stridor, wheezing, others Cardiovascular: denies: chest pain, dizzy spells, diaphoresis, Dyspnea on exertion, edema, irregular heart beat, left arm pain, lightheadedness, palpitations, PND, syncope, others Gastrointestinal: denies: abdomen distended, abdominal pain, blood streaked bowels, constipated, diarrhea, dysphagia, difficulty swallowing, hematemesis, melena, nausea, poor appetite, poor fluid intake, rectal bleeding, rectal pain, vomiting, others Genitourinary: denies: burning, dysuria, flank pain, frequency, hematuria, incontinence, penile discharge, penile sore, pain, testicle pain, testicle swelling, urgency, others Neurological: denies: dizziness, fainting, headache, left sided numbness, left sided weakness, numbness, paresthesia, pre-existing deficit, right sided numbness, right sided weakness, seizure, speech problems, tingling, tremors, weakness, others Musculoskeletal: denies: back pain, gout, joint pain, joint swelling, muscle pain, muscle stiffness, neck pain, others Integumetry: denies: bruises, change in color, change in hair/nails, dryness, laceration, lesions, lumps, rash, wounds, others Allergic/Immunocompromised: denies: Difficulty Healing, Frequent Infections, Hives, Itching, others Hematologic/Lymphatic: denies: anemia, blood clots, easy bleeding, easy bruising, swollen glands, others Endocrine: denies: excessive hunger, excessive sweating, excessive thirst, excessive urination, flushing, intolerance to cold, intolerance to heat, unexplained weight gain, unexplained weight loss, others Psychiatric: denies: anxiety, bipolar disorder, depression, hopeless, panic disorder, schizophrenia, sleepless, suicidal, others All Other Systems: Reviewed and Negative Physical Exam General Appearance: Moderate Distress, Normal HEENT: Normal ENT Inspection, Pharynx Normal, TMs Normal Neck: Full Range of Motion, Non-Tender, Normal, Normal Inspection Respiratory: Chest Non-Tender, Lungs Clear, No Accessory Muscle Use, No Res piratory Distress, Normal Breath Sounds Cardiovascular: No Edema, No JVD, No Murmur, No Gallop, Normal Peripheral Pulses, Regular Rate/Rhythm Breast Exam: Deferred Gastrointestinal: No Organomegaly, Non Tender, No Pulsatile Mass, Normal Bowel Sounds, Soft Genitalia: Deferred Pelvic: Deferred Rectal: Deferred Extremities: No calf tenderness, Normal capillary refill, Normal inspection, Normal range of motion, Non-tender, No pedal edema Musculoskeletal : Apperance: Normal Neurologic: Alert, steel tier II-XII nml as Tested, No Motor Deficits, Normal Affect, Normal Mood, No Sensory Deficits Cerebellar Function: Normal Reflexes: Normal Skin: Dry, Normal Color, Warm Peripheral Pulses: 3+ Radial (R), 3+ Radial (L) Lymphatic: No Adenopathy Was a procedure done? Was a procedure done?: No EKG EKG : Pulse Rate (adult): 87 [place]: RAD Cardiac Rhythm: NSR Block: None Hypertrophy: None ST: Normal Differential Dx Considerations may include: Bronchitis Electrolyte imbalance X-Ray, Labs, Meds, VS Vital Signs Date Time Temp Pulse Resp B/P (MAP) Pulse Ox O2 Delivery O2 Flow Rate FiO2 06/29/24 11:19 22 98 Room Air* 0 21 06/29/24 11:13 87 06/29/24 10:52 87 06/29/24 10:44 98.6 92 20 142/81 (101) 95 98.6 06/29/24 10:44 20 95 Room Air* 0 21 Lab Test 06/29/24 11:15 Range/Units D-Dimer, Quantitative 0.35 0.0-0.49 mg/L FEU Troponin I High Sensitivity < 3 L </=54 ng/L Current Medications Medications (Trade) Dose Ordered Sig/[place] Route Start Time Stop Time Status Last Admin Albuterol (Ventolin Medneb) 5 mg ONCE ONCE NEB 06/29/24 11:15 06/29/24 11:16 DC 06/29/24 11:18 Ipratropium [place] (Atrovent Medneb) 0.5 mg ONCE ONCE NEB 06/29/24 11:15 06/29/24 11:16 DC 06/29/24 11:18 Patient alert pain Complaining of shortness a breath. Vitals stable. Saturation pristine on room air. Was given breathing treatment. No leg swelling. No chest pain. D-dimer within normal limits. Chest x-ray reviewed does not show any acute process. Possible pneumonitis. Explained to the patient that he will need to drink plenty of fluids take his antibiotics. Was told to follow up with his primary care physician. Was told to come back if there is any problem. Time of 1ST Reevaluation: 11:04 (EXPLAINED TO THE PATIENT THAT THEY MAY BE STAYING WITH US IN THE HOSPITAL, BUT IF STABLE FOR DISCHARGE, THEY WILL BE NOTIFIED AND SENT HOME.) Reevaluation 1ST: Unchanged Time of 2ND Reevaluation: 11:34 Reevaluation 2ND: Unchanged Patient Education/Counseling: Diagnosis, Treatment Family Education/Counseling: No Family Present Departure 1 Departure Time of Disposition: 11:34 Impression: Primary Impression: Pneumonitis Disposition: 01 HOME / SELF CARE / HOMELESS Condition: Good e-Prescriptions Albuterol Sulfate (VENTOLIN MDI) 90 Mcg Ih 90 MCG IN Q6HP PRN for 5 Days, #5 MCG Prov: MARK AGUIRRE MD 06/29/24 Prednisone (Prednisone) 10 Mg Tab 10 MG PO DAILY for 3 Days, #3 MG Prov: MARK AGUIRRE MD 06/29/24 Amoxicillin Trihydrate (Amoxicillin) 500 Mg Cap 1 CAP PO TID for 7 Days, #21 CAP Prov: MARK AGUIRRE MD 06/29/24 Discharged With: Self Comments 12:09 - SPOKE WITH PATIENT ABOUT RESULTS/FINDINGS & THAT HE WILL RECEIVE STEROIDS PLUS AN ADDITIONAL BREATHING TREATMENT AND WILL THEN BE DISCHARGED HOME. PATIENT IS IN AGREEMENT WITH THE PLAN OF CARE. Critical Care Note Critical Care Time?: No Stability Stability form required: No Heart Score Heart Score: Heart Score Response (Comments) Value History N/A 0 EKG N/A 0 Age N/A 0 Risk Factors N/A 0 Troponin N/A 0 Total 0 I personally scribed for MARK AGUIRRE MD ([email or web address]) on 06/29/24 at 11:12. Electronically submitted by Tom Nathan ([email or web address]). I personally scribed for MARK AGUIRRE MD ([email or web address]) on 06/29/24 at 11:13. Electronically submitted by Tom Nathan ([email or web address]). I personally scribed for MARK AGUIRRE MD ([email or web address]) on 06/29/24 at 12:12. Electronically submitted by Tom Nathan ([email or web address]). MARK AGUIRRE MD June 29, 2024 11:12
[2024-06-29] MEDS: methylPREDNISolone SOD SUCC 40 MG/ML VL IV ONE (11:15)
[2024-06-29] MEDS: IPRATROPIUM BROM 0.5 MG/2.5ML INH SOL NEB ONE (11:18)
[2024-06-29] MEDS: ALBUTEROL SULF 2.5 MG/0.5ML(0.5%) NEB SOLN ONE (11:18)
[2024-06-29] MEDS: IPRATROPIUM BROM 0.5 MG/2.5ML INH SOL ONE (11:18)
[2024-06-29] MEDS: ALBUTEROL SULF 2.5 MG/0.5ML(0.5%) NEB SOLN NEB ONE ×2 (11:18→12:42)
[2024-06-29] MEDS ORDERED: AMOX500C2 PO (11:35)
[2024-06-29] MEDS ORDERED: PRED10TA PO (11:35)
--- NOTE | 2024-06-29 12:02 | DVH ---
EXAM: XY CHEST PORTABLE Indication: sob Technique: Single frontal view of the chest was obtained Comparison: XY CHEST PORTABLE on DOS: 04/24/24, XY CHEST PORTABLE on DOS: 02/29/24, XY CHEST PORTABLE on DOS: 11/13/23, XY CHEST PORTABLE on DOS: 11/08/23, XY CHEST XRAY 1 VIEW on DOS: 11/04/23 FINDINGS: Lines and Tubes: None Lungs: No focal consolidation. Pleura: No effusion. No pneumothorax. Cardiomediastinal contours: Unremarkable Bones: No acute osseous abnormality. IMPRESSION: No acute cardiopulmonary disease.
[2024-06-29 12:30] VITALS: BP 142/81; PULSE 92; TEMP 98.6; O2SAT 95
[2024-06-29] MEDS ORDERED: ALBUAER3 IN (12:39)
[2024-06-29 12:43] VITALS: RESP 16; O2SAT 96
== END 2024-06-29 12:45 | disposition home or self-care (01) ==
LOC: ER 10:40
DX: J98.4 Other disorders of lung (principal); F41.9 Anxiety disorder, unspecified; J44.9 Chronic obstructive pulmonary disease, unspecified; F32.A Depression, unspecified; Z79.51 Long term (current) use of inhaled steroids; Z79.52 Long term (current) use of systemic steroids; Z79.899 Other long term (current) drug therapy
CPT/HCPCS: 36415; 71045; 84484; 85379; 93005; 94640

== ENCOUNTER 2025-01-17 11:08 | Emergency (ER) | payer BC, MEDICAID ==
[~2025-01-17] VITALS: Ht 177.8 cm; Wt 123.0 kg
[~2025-01-17 11:08] MED LIST changes: +AMOX500C2 PO
--- NOTE | 2025-01-17 11:49 | ED.PDOC ---
SOB-HPI HPI Comments 44y M who presents to the ED for chief complaint of shortness of breath. Pt states he has history of asthma and states despite taking his asthma inhaler and nebulizer for the past 5 days, he has continued to have shortness of breath and cough and came for further evaluation. Pt states his phlehm has been green and now turned clear since yesterday. Pt in the ED, has noted 02 sat of 93% on room air but no noted respiratory distress. Pt denies any other symptoms at this time. Chief Complaint: Shortness of Breath Time Seen by MD: 11:39 Primary Care Provider: SAEID Reviewed notes: Medications, Allergies Information Source: Patient Mode of Arrival: Ambulatory Brought in by: self Severity: Moderate Timing: Days Duration: Since onset Context: At Rest PE Risk Factors: None History of: Asthma Prehospital treatment: None Modifying Factors: Inhaler Associated Signs and Symptoms: Cough If cough with SOB: Clear, Green Past Medical History PAST MEDICAL HISTORY: Anxiety, Asthma, COPD, Depression Surgical History: Denies all surgeries Family History Family History: Reviewed,noncontributory to illness, Unknown Social History Smoker: Non-Smoker Alcohol: Denies ETOH Use Drugs: Denies Drug Use Lives In: Home Constitutional: denies: chills, diaphoresis, fatigue, fever, malaise, sweats, weakness, others EENTM: denies: blurred vision, double vision, ear bleeding, ear discharge, ear drainage, ear pain, ear ringing, eye pain, eye redness, hearing loss, mouth pain, mouth swelling, nasal discharge, nose bleeding, nose congestion, nose pain, photophobia, tearing, throat pain, throat swelling, voice changes, others Respiratory: reports: cough, shortness of breath; denies: hemoptysis, orthopnea, SOB at rest, SOB with excertion, stridor, wheezing, others Cardiovascular: denies: chest pain, dizzy spells, diaphoresis, Dyspnea on exer tion, edema, irregular heart beat, left arm pain, lightheadedness, palpitations, PND, syncope, others Gastrointestinal: denies: abdomen distended, abdominal pain, blood streaked bowels, constipated, diarrhea, dysphagia, difficulty swallowing, hematemesis, melena, nausea, poor appetite, poor fluid intake, rectal bleeding, rectal pain, vomiting, others Genitourinary: denies: burning, dysuria, flank pain, frequency, hematuria, incontinence, penile discharge, penile sore, pain, testicle pain, testicle swelling, urgency, others Neurological: denies: dizziness, fainting, headache, left sided numbness, left sided weakness, numbness, paresthesia, pre-existing deficit, right sided numbness, right sided weakness, seizure, speech problems, tingling, tremors, weakness, others Musculoskeletal: denies: back pain, gout, joint pain, joint swelling, muscle pain, muscle stiffness, neck pain, others Integumetry: denies: bruises, change in color, change in hair/nails, dryness, laceration, lesions, lumps, rash, wounds, others Allergic/Immunocompromised: denies: Difficulty Healing, Frequent Infections, Hives, Itching, others Hematologic/Lymphatic: denies: anemia, blood clots, easy bleeding, easy bruising, swollen glands, others Endocrine: denies: excessive hunger, excessive sweating, excessive thirst, excessive urination, flushing, intolerance to cold, intolerance to heat, unexplained weight gain, unexplained weight loss, others Psychiatric: denies: anxiety, bipolar disorder, depression, hopeless, panic disorder, schizophrenia, sleepless, suicidal, others All Other Systems: Reviewed and Negative Physical Exam General Appearance: Moderate Distress HEENT: Normal ENT Inspection, Pharynx Normal, TMs Normal Neck: Full Range of Motion, Non-Tender, Normal, Normal Inspection Respiratory: Decreased Breath Sounds, Lungs Clear, No Accessory Muscle Use, Respiratory Distress, Wheezing Cardiovascular: No Edema, No JVD, No Murmur, No Gallop, Normal Peripheral Pulse s, Regular Rate/Rhythm Breast Exam: Deferred Gastrointestinal: No Organomegaly, Non Tender, No Pulsatile Mass, Normal Bowel Sounds, Soft Genitalia: Deferred Pelvic: Deferred Rectal: Deferred Extremities: No calf tenderness, Normal capillary refill, Normal inspection, Normal range of motion, Non-tender, No pedal edema Musculoskeletal : Apperance: Normal Neurologic: Alert, retail center receptionist II-XII nml as Tested, No Motor Deficits, Normal Affect, Normal Mood, No Sensory Deficits Cerebellar Function: Normal Reflexes: Normal Skin: Dry, Normal Color, Warm Lymphatic: No Adenopathy EKG EKG : Pulse Rate (adult): 103 [place]: RAD Cardiac Rhythm: ST Block: None Hypertrophy: None ST: Normal Was a procedure done? Was a procedure done?: No Differential Dx Differential Diagnosis: Asthma, Bronchitis, Pneumonia, Respiratory Distress, Pharyngitis, URI Comments influenza A and B, COVID X-Ray, Labs, Meds, VS Vital Signs Date Time Temp Pulse Resp B/P (MAP) Pulse Ox O2 Delivery O2 Flow Rate FiO2 01/17/25 12:00 96 Room Air* 0 21 01/17/25 12:00 20 96 Room Air* 0 21 01/17/25 11:49 103 01/17/25 11:22 103 01/17/25 11:10 98.2 115 18 150/102 93 98.2 Lab Test 01/17/25 13:15 01/17/25 11:58 Range/Units Influenza Type A Antigen Pending Influenza Type B Antigen Pending SARS-CoV-2 Antigen (Rapid) Pending White Blood Count 6.6 4.4-10.8 10^3/uL Red Blood Count 5.71 4.5-5.90 10^6/uL Hemoglobin 17.4 13.5-17.5 g/dL Hematocrit 48.8 41.0-53.0 % Mean Corpuscular Volume 85.6 80.0-100.0 fL Mean Corpuscular Hemoglobin 30.5 28.0-32.0 pg Mean Corpuscular Hemoglobin Concent 35.6 32.0-36.0 g/dL Red Cell Distribution Width 13.0 11.8-14.3 % Platelet Count 295 140-450 10^3/uL Mean Platelet Volume 7.9 6.9-10.8 fL Neutrophils (%) (Auto) 67.1 37.0-80.0 % Lymphocytes (%) (Auto) 19.5 10.0-50.0 % Monocytes (%) (Auto) 11.9 0.0-12.0 % Eosinophils (%) (Auto) 0.8 0.0-7.0 % Basophils (%) (Auto) 0.7 0.0-2.0 % Neutrophils # (Auto) 4.5 1.6-8.6 10 ^3/uL Lymphocytes # (Auto) 1.3 0.4-5.4 10 ^3/uL Monocytes # (Auto) 0.8 0-1.3 10 ^3/uL Eosinophils # (Auto) 0.1 0-0.8 10 ^3/uL Basophils # (Auto) 0 0-0.2 10 ^3/uL Nucleated Red Blood Cells 0.2 % Sodium Level 141 136-145 mmol/L Potassium Level 3.4 L 3.5-5.1 mmol/L Chloride Level 104 98-107 mmol/L Carbon Dioxide Level 24 20-31 mmol/L Anion Gap 13 5-15 Blood Urea Nitrogen 12 9-23 mg/dL Creatinine 1.04 0.700-1.30 mg/dL Glomerular Filtration Rate Calc 91 >90 mL/min BUN/Creatinine Ratio 11.5 10.0-20.0 Serum Glucose 98 74-106 mg/dL Calcium Level 9.9 8.7-10.4 mg/dL Current Medications Medications (Trade) Dose Ordered Sig/[place] Route Start Time Stop Time Status Last Admin Ipratropium [place] (Atrovent Medneb) 1 mg ONCE ONCE HHN 01/17/25 11:45 01/17/25 11:46 DC 01/17/25 11:55 Albuterol (Ventolin Medneb) 20 mg ONCE ONCE HHN 01/17/25 11:45 01/17/25 11:46 DC 01/17/25 11:55 Sodium Chloride 500 ml @ 500 mls/hr Q1H ONCE IV 01/17/25 11:45 01/17/25 12:44 DC 01/17/25 13:25 PROCEDURE(s): CXR2 - CHEST TWO VIEWS ROUTINE IMPRESSION: NO ACUTE CARDIOPULMONARY PROCESS. The patient had an IV Hep-Lock established The patient was given normal saline at a 500 cc bolus The patient was given a breathing treatment of albuterol and Atrovent. The patient's CBC and chemistry panel are within normal limits The COVID test and influenza a and influenza B are pending We did call [facility] because the patient had no improvement with the continuous breathing treatment of albuterol and Atrovent The patient will be transferred to their facility. The patient is being accepted by Dr. Garcia. The authorization #[id number] We have discussed the findings with the patient and he is in agreement with the management. Images Reviewed?: Images reviewed and evaluated by me Time of 1ST Reevaluation: 12:05 Reevaluation 1ST: Unchanged Patient Education/Counseling: Diagnosis, Treatment, Prognosis, Need For Follow Up Family Education/Counseling: No Family Present SEPSIS Sepsis Screen Date sepsis recognized/suspect: Jan 17, 2025 Time Sepsis recognized/suspect: 1112 Recent Procedure: No On Antibiotic Therapy: No Respiratory Rate >20: No Heart Rate >90: Yes Temp<36 C (96.8 F) or >38.3 C: No SBP <90 or MAP <65 mmHG: No New Acute Mental Status Change: No Is the patient on CPAP, BIPAP,: No Physician Orders Electrocardigram (01/17/25 11:14) Med Neb Initial Treatment (01/17/25 11:38) Heplock Iv (01/17/25 11:38) Pulse Oximetry (01/17/25 11:38) Proced Tech (01/17/25 11:38) Blood Pressure (01/17/25 11:38) Chest Two Views Routine (01/17/25 11:38) Covid19 Antigen Mala (01/17/25 ) Rapid Influenza A&B (01/17/25 11:38) Vital Signs Date Time Temp Pulse Resp B/P (MAP) Pulse Ox O2 Delivery O2 Flow Rate FiO2 01/17/25 12:00 96 Room Air* 0 21 01/17/25 12:00 20 96 Room Air* 0 21 01/17/25 11:49 103 01/17/25 11:22 103 01/17/25 11:10 98.2 115 18 150/102 93 98.2 Laboratory Tests Test 01/17/25 11:58 White Blood Count 6.6 10^3/uL (4.4-10.8) Medications Medications Dose Ordered Sig/[place] Route Start Time Stop Time Status Last Admin Dose Admin Albuterol 20 mg ONCE ONCE N 01/17/25 11:45 01/17/25 11:46 DC 01/17/25 11:55 Ipratropium [place] 1 mg ONCE ONCE HHN 01/17/25 11:45 01/17/25 11:46 DC 01/17/25 11:55 Sodium Chloride 500 ml @ 500 mls/hr Q1H ONCE IV 01/17/25 11:45 01/17/25 12:44 DC 01/17/25 13:25 Departure 1 Departure Time of Disposition: 13:34 Impression: Primary Impression: Status asthmaticus Qualified Codes: J45.42 - Moderate persistent asthma with status asthmaticus Disposition: 51 HOSPICE/MEDICAL FACILITY Condition: Fair Discharged With: Self Critical Care Note Critical Care Time?: Yes (45 min-critical care time only) Stability Stability form required: Yes Stable for transfer: Intended for transfer (Health plan request transfer), To designated facility Heart Score Heart Score: Heart Score Response (Comments) Value History N/A 0 EKG N/A 0 Age N/A 0 Risk Factors N/A 0 Troponin N/A 0 Total 0 I personally scribed for MAXIMILIAN DEL CASTILLO MD ([email or web address]) on 01/17/25 at 11:49. Electronically submitted by Stephanie Ma ([email or web address]). I personally scribed for MAXIMILIAN DEL CASTILLO MD ([email or web address]) on 01/17/25 at 12:12. E lectronically submitted by Stephanie Ma ([email or web address]). MAXIMILIAN DEL CASTILLO MD Jan 17, 2025 11:49
[2025-01-17] MEDS: IPRATROPIUM BROM 0.5 MG/2.5ML INH SOL HHN ONE (11:55)
[2025-01-17] MEDS: ALBUTEROL SULF 2.5 MG/0.5ML(0.5%) NEB SOLN HHN ONE (11:55)
--- NOTE | 2025-01-17 12:08 | DVH ---
CLINICAL HISTORY: sob TECHNIQUE: Chest 2 views of the chest were obtained. COMPARISON: XY CHEST TWO VIEWS ROUTINE on DOS: 10/28/23 FINDINGS: The heart size and pulmonary vasculature are normal. The lungs are clear. No pleural effusion is present. IMPRESSION: NO ACUTE CARDIOPULMONARY PROCESS.
[2025-01-17 12:39] LABS: Hematocrit 48.8 % (41.0-53.0); Hemoglobin 17.4 g/dL (13.5-17.5); Mean Corpuscular Hemoglobin 30.5 pg (28.0-32.0); Mean Corpuscular Volume 85.6 fL (80.0-100.0); Nucleated Red Blood Cells % 0.2 %
[2025-01-17 12:51] LABS: Chloride 104 mmol/L (98-107); Sodium 141 mmol/L (136-145)
[2025-01-17 12:52] LABS: Anion Gap 13 (5-15); Carbon Dioxide 24 mmol/L (20-31)
[2025-01-17 12:53] LABS: Calcium 9.9 mg/dL (8.7-10.4)
[2025-01-17 12:57] LABS: BUN/Creatinine Ratio 11.5 (10.0-20.0); Blood Urea Nitrogen 12 mg/dL (9-23); Glucose 98 mg/dL (74-106)
[2025-01-17 12:59] LABS: Potassium 3.4 mmol/L (3.5-5.1)
[2025-01-17] MEDS: SODIUM CHLORIDE 0.9% 500 ML IV ONE (13:25)
[2025-01-17] MEDS: methylPREDNISolone SOD SUCC 125 MG/2 ML VL IV ONE (13:50)
[2025-01-17 13:54] LABS: COVID19 ANTIGEN SOFIA FIA NEGATIVE (NEGATIVE)
[2025-01-17 13:57] VITALS: BP 136/100; PULSE 125; RESP 18; TEMP 99; O2SAT 94
--- NOTE | 2025-01-19 12:14 | ECG ---
[facility] Test Date: 2025-01-17 Test Time: 11:22:34 Pat Name: MICHELL CUETO Department: Room: Gender: M [employer] [place]: [place] : 1980 Requested By: MAXIMILIAN DEL CASTILLO Order Number: [id number] Reading MD: Ravindra Edmond Measurements Intervals [place] Rate: 103 P: 55 ID: [id number] QRS: 164 QRSD: 89 T: 20 QT: 329 QTc: 431 Interpretive Statements Sinus tachycardia Right axis deviation Abnormal R-wave progression, late transition Baseline wander in lead(s) III Electronically Signed On 01-20-2025 17:02:44 PST by Ravindra Edmond Please click the below link to view image of tracing.
== END 2025-01-17 12:53 | disposition short-term general hospital (02) ==
LOC: ER 11:08
DX: J45.42 Moderate persistent asthma with status asthmaticus (principal); J45.909 Unspecified asthma, uncomplicated; J44.9 Chronic obstructive pulmonary disease, unspecified; Z20.822 Contact with and (suspected) exposure to COVID-19
CPT/HCPCS: 36415; 71046; 80048; 85025; 87426; 87804; 93005; 94644; 96361; 96374; 99285; J2919; J7040; 99291

== ENCOUNTER 2025-01-18 09:42 | Emergency (ER) | payer MEDICAID ==
[~2025-01-18] VITALS: Ht 177.8 cm; Wt 123.0 kg
[2025-01-18] MEDS: IPRATROPIUM BROM 0.5 MG/2.5ML INH SOL ONE (10:31)
--- NOTE | 2025-01-18 10:31 | ED.PDOC ---
SOB-HPI HPI Comments This is a 44 year old male with PMH of asthma who has come today to the ER with aucte exacerbation of asthma. Patient was here at this facility yesterday as well for the same complaint and transferred to [place] after med nebulizations and a Chest xray which showed no acute cardiopulmonary disease. Covid and flu tests were negative as well done yesterday at this facility. Today the patient states that despite med neb of albuterol and budesoniude thrice, he felt SOB, which increased more when he walked, prompting him to visit the ER. He reports of cough for 4 days with production of white sputum. Patient reports he was told he has pneumonia yesterday at [place], given breathing treatment, IV antibiotics and sent home with antibiotics he cannot remember the name of. He denies any chest pain, fever, chills, or any other symptoms. On initial assessment, patient is A&Ox4, in mild distress and wheezing. Chief Complaint: Asthma Time Seen by MD: 10:00 Primary Care Provider: SAEID Reviewed notes: Medications, Allergies Information Source: Patient Mode of Arrival: Ambulatory Severity: Moderate Timing: Hours Duration: Since onset Context: With Light Exertion PE Risk Factors: None History of: Asthma Prehospital treatment: None Modifying Factors: Nothing Associated Signs and Symptoms: Wheeze, Cough If cough with SOB: Productive, Clear Past Medical History PAST MEDICAL HISTORY: Anxiety, Asthma, COPD, Depression Surgical History: Denies all surgeries Family History Family History: Reviewed,noncontributory to illness, Unknown Social History Smoker: Non-Smoker Alcohol: Denies ETOH Use Drugs: Denies Drug Use Lives In: Home Constitutional: denies: chills, diaphoresis, fatigue, fever, malaise, sweats, weakness, others EENTM: denies: blurred vision, double vision, ear bleeding, ear discharge, ear drainage, ear pain, ear ringing, eye pain, eye redness, hearing loss, mouth pain, mouth swelling, nasal discharge, nose bleeding, nose congestion, nose pain, photophobia, tearing, throat pain, throat swelling, voice changes, others Respiratory: reports: cough, shortness of breath, wheezing; denies: hemoptysis, orthopnea, SOB at rest, SOB with excertion, stridor, others Cardiovascular: denies: chest pain, dizzy spells, diaphoresis, Dyspnea on exertion, edema, irregular heart beat, left arm pain, lightheadedness, palpitations, PND, syncope, others Gastrointestinal: denies: abdomen distended, abdominal pain, blood streaked bowels, constipated, diarrhea, dysphagia, difficulty swallowing, hematemesis, melena, nausea, poor appetite, poor fluid intake, rectal bleeding, rectal pain, vomiting, others Genitourinary: denies: burning, dysuria, flank pain, frequency, hematuria, in continence, penile discharge, penile sore, pain, testicle pain, testicle swelling, urgency, others Musculoskeletal: denies: back pain, gout, joint pain, joint swelling, muscle pain, muscle stiffness, neck pain, others Integumetry: denies: bruises, change in color, change in hair/nails, dryness, laceration, lesions, lumps, rash, wounds, others Allergic/Immunocompromised: denies: Difficulty Healing, Frequent Infections, Hives, Itching, others Hematologic/Lymphatic: denies: anemia, blood clots, easy bleeding, easy bruising, swollen glands, others Endocrine: denies: excessive hunger, excessive sweating, excessive thirst, excessive urination, flushing, intolerance to cold, intolerance to heat, unexplained weight gain, unexplained weight loss, others Psychiatric: reports: anxiety; denies: bipolar disorder, depression, hopeless, panic disorder, schizophrenia, sleepless, suicidal, others Physical Exam General Appearance: Mild Distress HEENT: Other (no pallor or itcteus) Neck: Full Range of Motion, Normal Inspection Respiratory: No Accessory Muscle Use, Respiratory Distress, Wheezing Cardiovascular: No Edema, No JVD, No Murmur, Tachycardia Breast Exam: Deferred Gastrointestinal: No Organomegaly, Non Tender, Normal Bowel Sounds Genitalia: Deferred Pelvic: Deferred Rectal: Deferred Extremities: Normal inspection, Normal range of motion, No pedal edema Neurologic: Alert, No Motor Deficits, No Sensory Deficits Cerebellar Function: Normal Reflexes: Normal Skin: Normal Color Lymphatic: Other (no cervical adenopathy) Was a procedure done? Was a procedure done?: No Differential Dx Differential Diagnosis: Asthma X-Ray, Labs, Meds, VS Vital Signs Date Time Temp Pulse Resp B/P (MAP) Pulse Ox O2 Delivery O2 Flow Rate FiO2 01/18/25 10:27 20 97 Room Air* 0 21 01/18/25 09:44 98.7 112 18 165/74 95 98.7 Patient came in with asthma exacerbation, and he was given breathing treatment with med neb albuterol 5mg and med neb ipratropium 0.5mg. He was offered transfer to [place] but patient declined it and stated he would prefer to drive to [place]. He reported feeling better after breathing treatments and is stable to be discharged. Patient communicated understanding and agreed to the discharge plan. Time of 1ST Reevaluation: 10:40 Reevaluation 1ST: Improved Patient Education/Counseling: Diagnosis, Treatment Family Education/Counseling: No Family Present SEPSIS Sepsis Screen Date sepsis recognized/suspect: Jan 18, 2025 Time Sepsis recognized/suspect: 949 Recent Procedure: No On Antibiotic Therapy: No Respiratory Rate >20: No Heart Rate >90: Yes Temp<36 C (96.8 F) or >38.3 C: No SBP <90 or MAP <65 mmHG: No New Acute Mental Status Change: No Is the patient on CPAP, BIPAP,: No Vital Signs Date Time Temp Pulse Resp B/P (MAP) Pulse Ox O2 Delivery O2 Flow Rate FiO2 01/18/25 10:27 20 97 Room Air* 0 21 01/18/25 09:44 98.7 112 18 165/74 95 98.7 Medications Medications Dose Ordered Sig/[place] Route Start Time Stop Time Status Last Admin Dose Admin Albuterol 5 mg STK-MED ONCE .ROUTE 01/18/25 10:18 01/18/25 10:18 DC 01/18/25 10:32 Ipratropium [place] 0.5 mg STK-MED ONCE .ROUTE 01/18/25 10:18 01/18/25 10:18 DC 01/18/25 10:31 Departure 1 Departure Time of Disposition: 10:45 Impression: Primary Impression: Asthma exacerbation Disposition: 01 HOME / SELF CARE / HOMELESS Condition: Stable Discharged With: Self Critical Care Note Critical Care Time?: No Stability Stability form required: No Heart Score Heart Score: Heart Score Response (Comments) Value History N/A 0 EKG N/A 0 Age N/A 0 Risk Factors N/A 0 Troponin N/A 0 Total 0 BENI ENCINAS RESIDENT Jan 18, 2025 10:30
[2025-01-18] MEDS: ALBUTEROL SULF 2.5 MG/0.5ML(0.5%) NEB SOLN ONE (10:32)
[2025-01-18] MEDS: IPRATROPIUM BROM 0.5 MG/2.5ML INH SOL NEB ONE (10:44)
[2025-01-18] MEDS: ALBUTEROL SULF 2.5 MG/0.5ML(0.5%) NEB SOLN NEB ONE (10:44)
[2025-01-18 11:49] VITALS: BP 138/79; PULSE 89; TEMP 98.4
[2025-01-18 12:03] VITALS: RESP 20; O2SAT 94
== END 2025-01-18 12:11 | disposition home or self-care (01) ==
LOC: ER 09:42
DX: J45.901 Unspecified asthma with (acute) exacerbation (principal); F32.A Depression, unspecified; Z79.899 Other long term (current) drug therapy
CPT/HCPCS: 94640